=== PATIENT | female | born 2000 | race Caucasian/White ===

== ENCOUNTER 2020-12-06 22:00 | Outpatient (CLI) | payer OTHER ==
[~2020-12-06] VITALS: Ht 160 cm; Wt 88.6 kg
--- NOTE | 2020-12-06 22:10 | NUR ---
Pt arrived on unit with complaints of contractions every "couple minutes" for the last couple hours. Pt denies any leaking of fluid but reports some bloody discharge after she was seen in the clinic with Dr. Hendrix and had a membrane sweep done. Pt also report normal movement. EFM and tococ monitors started. Vital signs WNL. SVE by this RN /. Plan of care for labor assessment reviewed.
[2020-12-06] MEDS ORDERED: ZOLOFT 50MG50 MG PO (22:32)
[2020-12-06] MEDS ORDERED: PRENATAL (22:33)
[2020-12-06] MEDS ORDERED: BUSPAR5 MG PO (22:33)
[2020-12-06 22:45] VITALS: BP 122/74; PULSE 97; TEMP 98.1
--- NOTE | 2020-12-06 23:45 | NUR ---
IV started and LR bolus infusing per Dr. Morris's orders. See EMAR for details.
--- NOTE | 2020-12-07 00:25 | NUR ---
Pt reports ctx spacing out and not as intense as when she arrived. SVE by this RN with no change . Orders for discharge home received from Dr. Morris. Discharge instructions and precautions reviewed with pt and at the bedside. Both verbalized an understanding, agreed with the plan and state no questions or concerns at this time.
== END 2020-12-07 00:45 | disposition home or self-care (01) ==
LOC: LDRO 22:00
DX: O62.9 Abnormality of forces of labor, unspecified (principal); O46.93 Antepartum hemorrhage, unspecified, third trimester; Z3A.38 38 weeks gestation of pregnancy
CPT/HCPCS: J7120